=== PATIENT | female | born 1960 | race Caucasian/White ===

== ENCOUNTER 2016-07-18 11:15 | Outpatient (CLI) | payer BC | END 2016-07-18 11:16 | disposition home or self-care (01) | DX: N92.4 Excessive bleeding in the premenopausal period (principal) ==

== ENCOUNTER 2016-07-20 06:06 | Day surgery (SDC) | payer BC ==
[2016-07-20] MEDS ORDERED: ceFAZolin 2 GM/50 ML 50 ML IV ONE (10:01)
[2016-07-20] MEDS ORDERED: LACTATED RINGERS 1,000 ML IV ONE ×2 (10:07→15:24)
[2016-07-20] MEDS ORDERED: SUCCINYLCHOLINE 200 MG/10 ML VIAL IVP ONE (14:00)
[2016-07-20] MEDS ORDERED: LIDOCAINE-PF 2% 10 ML AMP SUBQ ONE (14:00)
[2016-07-20] MEDS ORDERED: ONDANSETRON 4 MG/2 ML VIAL IVP ONE (14:00)
[2016-07-20] MEDS ORDERED: ROCURONIUM 50 MG/5 ML VIAL IVP ONE (14:00)
[2016-07-20] MEDS ORDERED: MIDAZOLAM 2 MG/2 ML VIAL IVP ONE (14:00)
[2016-07-20] MEDS ORDERED: PROPOFOL 200 MG/20 ML VIAL IVP ONE (14:00)
[2016-07-20] MEDS ORDERED: DEXAMETHASONE 4 MG/ML VIAL IVP ONE (14:00)
[2016-07-20] MEDS ORDERED: NEOSTIGMINE 1 MG/1 ML 10 ML MDV IVP ONE (14:00)
[2016-07-20] MEDS ORDERED: GLYCOPYRROLATE 1 MG/5 ML VIAL IVP ONE (14:00)
[2016-07-20] MEDS ORDERED: fentaNYL 100 MCG/2 ML VIAL IVP ONE (14:00)
[2016-07-20] MEDS ORDERED: ePHEDrine 50 MG/ML VIAL IVP ONE (14:00)
[2016-07-20] MEDS ORDERED: ACETAMINOPHEN 1,000 MG/100 ML VIAL IV ONE (14:00)
[2016-07-20] MEDS ORDERED: BUPIVACAINE 0.25%-EPI 1:200000 PF 30 ML VIAL SUBQ ONE ×2 (14:17→16:11)
[2016-07-20] MEDS ORDERED: ONDANSETRON 4 MG/2 ML VIAL IVP PRN (18:17)
[2016-07-20] MEDS ORDERED: HYDROmorphone 1 MG/ML SYRINGE IVP PRN (18:20)
[2016-07-20] MEDS: ACETAMINOPHEN 1,000 MG/100 ML 100 ML IV SCH (18:45)
[2016-07-20] MEDS: oxyCODONE 5 MG TABLET PO PRN (20:40)
[2016-07-21] MEDS: oxyCODONE 5 MG TABLET PO PRN ×3 (00:52→09:10)
[2016-07-21] MEDS: ACETAMINOPHEN 1,000 MG/100 ML 100 ML IV SCH ×2 (01:22→07:02)
== END 2016-07-21 10:29 | disposition home or self-care (01) ==
PROC: 0UTC4ZZ Resection of Cervix, Percutaneous Endoscopic Approach (ICD-10-PCS; 2016-07-20)
PROC: 0UT74ZZ Resection of Bilateral Fallopian Tubes, Percutaneous Endoscopic Approach (ICD-10-PCS; 2016-07-20)
PROC: 0UT94ZZ Resection of Uterus, Percutaneous Endoscopic Approach (ICD-10-PCS; principal; 2016-07-20 07:30)
DX: N92.0 Excessive and frequent menstruation with regular cycle (principal); N88.8 Other specified noninflammatory disorders of cervix uteri; N80.0 Endometriosis of uterus; D25.1 Intramural leiomyoma of uterus; D25.0 Submucous leiomyoma of uterus; D50.0 Iron deficiency anemia secondary to blood loss (chronic); K21.9 Gastro-esophageal reflux disease without esophagitis
CPT/HCPCS: 58570; 58661; 81025; A9270; J0131; J0690; J7120

== ENCOUNTER 2018-08-20 07:07 | Outpatient (CLI) | payer BC ==
--- NOTE | 2018-08-20 09:50 | Ultrasound Report ---
Reason: ELEVATED LFT'S Procedure Date: 08/20/2018 Accession Number: [id number] / [id number] Procedure: US - Abdomen Limited CPT Code: FULL RESULT: EXAM: ABDOMEN ULTRASOUND LIMITED, RUQ EXAM DATE: 08/20/2018 07:17 AM. CLINICAL HISTORY: Elevated LFTs. COMPARISON: None. TECHNIQUE: Real-time scanning was performed with static images obtained. FINDINGS: Liver: Normal in size with increased echogenicity and slightly coarse echotexture. Right lobe of the liver measures at least 15 cm. Main portal vein flow: Hepatopetal. Gallbladder: Normal. No stones, wall thickening, or sonographic Pantoja's sign. Biliary System: CBD measures 3 mm. No intrahepatic or extrahepatic ductal dilatation. Other: None. IMPRESSION: Apparent increased echogenicity of liver parenchyma which is nonspecific but can be seen with parenchymal disease or as a result of body habitus/limited acoustic windows. RADIA
== END 2018-08-20 07:08 | disposition home or self-care (01) ==
LOC: DI 07:07
PROVIDERS: ATTEND Internal Medicine
DX: R74.8 Abnormal levels of other serum enzymes (principal)
CPT/HCPCS: 76705

== ENCOUNTER 2018-10-12 07:59 | Outpatient (CLI) | payer BC ==
--- NOTE | 2018-10-23 08:12 | Mammography Report ---
Reason: SCREENING MAMMO Procedure Date: 10/12/2018 Accession Number: [id number] / [id number] Procedure: [facility] - Screening Mammo w/Marbin CPT Code: FULL RESULT: EXAM: Screening Mammo w/Marbin DATE: 10/12/2018 8:52 AM CLINICAL HISTORY: Screening encounter. History of nulliparity and early menses. TECHNIQUE: (B) - Bilateral CC and MLO views were obtained. COMPARISON: 03/13/2013. PARENCHYMAL PATTERN: (F) - The breast(s) demonstrate(s) diffuse fatty replacement. FINDINGS: There are no suspicious masses, calcifications, or areas of distortion. IMPRESSION: Negative examination. BI-RADS category 1. RECOMMENDATION: (ANNUAL) - Recommend routine annual screening mammography. BI-RADS CATEGORY: (1) - Negative. STANDARD QUALIFYING STATEMENTS: 1. This examination was not reviewed with the aid of Computer-Aided Detection (CAD). 2. A negative or benign imaging report should not preclude biopsy if clinically suspicious findings are present. 3. Dense breasts may obscure an underlying neoplasm. 4. This examination was reviewed with the aid of 3D breast imaging (tomosynthesis).
== END 2018-10-12 08:00 | disposition home or self-care (01) ==
LOC: DI 07:59
PROVIDERS: ATTEND Internal Medicine
DX: Z12.31 Encounter for screening mammogram for malignant neoplasm of breast (principal)
CPT/HCPCS: 77063; 77067

== ENCOUNTER 2023-08-10 09:01 | Outpatient (CLI) | payer BC ==
--- NOTE | 2023-08-11 08:38 | Mammography Report ---
BILATERAL DIGITAL SCREENING MAMMOGRAM 3D/2D: 08/10/2023 CLINICAL: Routine screening. Comparison is made to exam dated: 10/12/2018 mammogram - [facility]. Both breasts are almost entirely fatty (category a/<25% glandular tissue). No significant masses, calcifications, or other findings are seen in either breast. There has been no significant interval change. IMPRESSION: NEGATIVE There is no mammographic evidence of malignancy. A 1 year screening mammogram is recommended. Based on the Tyrer Cuzick model (a risk assessment model) the patient's lifetime risk is 5.9% and her 10 year risk is 2.5%. According to the ACR, ACS, and NCCN guidelines, an annual breast MRI exam atul g with mammogram is recommended if the patient's lifetime risk is 20% or greater. This exam was interpreted at Station ID: [id number]. NOTE: For mammograms, a report in lay terms will be sent to the patient. Approximately 15% of breast malignancies will not be visualized mammographically. In the management of a palpable breast mass, a negative mammogram must not discourage biopsy of a clinically suspicious lesion. Electronically Signed By: Jayne freedman/faustina:08/10/2023 15:57:44 letter sent: No_Letter ACR BI-RADS Category 1: Negative 3341F PARENCHYMAL PATTERN: (F) - The breast(s) demonstrate(s) diffuse fatty replacement. BI-RADS CATEGORY: (1) - 1 RECOMMENDATION: (ANNUAL) - Recommend routine annual screening mammography. [id number] 1 year screening LATERALITY: (B)
== END 2023-08-10 09:02 | disposition home or self-care (01) ==
LOC: DI 09:01
PROVIDERS: ATTEND Internal Medicine
DX: Z12.31 Encounter for screening mammogram for malignant neoplasm of breast (principal)